=== PATIENT | female | born 1990 ===

== ENCOUNTER 2018-04-15 13:06 | Emergency (ER) | payer OTHER ==
--- NOTE | 2018-04-15 13:29 | UC ---
Throat Pain/Nasal Michele HPI - HPI Summary HPI Summary: 28 yo female presents with sinus pain/pressure/congestion for the last 2-3 weeks. She has been using dayquill and using a netti pot almost daily with relief at first, but no longer helping. Over the last 2-3 days she has felt some pressure and popping in her ears with a frontal headache. She has felt hot/ cold, but says has never had an elevated temperature. Denies fever, sore throat , cough, rash. - History of Current Complaint Chief Complaint: UCGeneralIllness Stated Complaint: SINUS ISSUE Time Seen by Provider: 04/15/18 13:29 Hx Obtained From: Patient Hx Last Menstrual Period: 03/26/2018 Onset/Duration: Gradual Onset Severity: Mild Pain Intensity: 1 Pain Scale Used: 0-10 Numeric - Allergies/Home Medications Allergies/Adverse Reactions: Allergies Allergy/AdvReac Type Severity Reaction Status Date / Time No Known Allergies Allergy Verified 04/15/18 13:22 Home Medications: Home Medications Estradiol/Norethindrone Acet [Estradiol-Noreth 1-0.5 mg Tab] 04/15/18 [History] Phenyleph/Acetaminophn/Doxylam [Eq Daytime-Nitetime Sinus Sfgl] 1 tab 04/15/18 [ History] Propranolol HCl 20 mg PO 04/15/18 [History] buPROPion TAB* [Wellbutrin TAB*] 100 mg PO BID 04/15/18 [History Confirmed 04/15] PMH/Surg Hx/FS Hx/Imm Hx Psychological History: Anxiety, Depression - Surgical History Surgical History: None - Family History Known Family History: Positive: None - Social History Lives: With Family Alcohol Use: None Substance Use Type: None Smoking Status (MU): Never Smoked Tobacco Review of Systems All Other Systems Reviewed And Are Negative: Yes Constitutional: Positive: Negative Skin: Positive: Negative Eyes: Positive: Negative ENT: Positive: Nasal Discharge, Sinus Congestion, Sinus Pain/Tenderness Respiratory: Positive: Negative Cardiovascular: Positive: Negative Gastrointestinal: Positive: Negative Neurovascular: Positive: Negative Neurological: Positive: Negative Psychological: Positive: Negative Physical Exam - Summary Physical Exam Summary: GENERAL: NAD. WDWN. No pain distress. SKIN: No rashes, sores, lesions, or open wounds. HEENT: Head: AT/NC Eyes: EOM intact. Conjunctiva clear without inflammation or discharge. Ears: Hearing grossly normal. TMs intact, no bulging, erythema, or edema. Nose: Nasal mucosa mildly swollen and erythematous with yellow discharge. TTP maxillary < frontal sinus. Positive post nasal drip Throat: Posterior oropharynx without exudates, erythema, or tonsillar enlargement. Uvula midline. NECK: Supple. Nontender. No lymphadenopathy. CHEST: CTAB. No r/r/w. No accessory muscle use. Breathing comfortably and in no distress. CV: RRR. Without m/r/g. Pulses intact. NEURO: Alert. PSYCH: Age appropriate behavior. Triage Information Reviewed: Yes Vital Signs: Initial Vital Signs Temp 97.9 F 04/15/18 13:15 Pulse 81 04/15/18 13:15 Resp 16 04/15/18 13:15 BP 151/80 04/15/18 13:15 Pulse Ox 100 04/15/18 13:15 Vital Signs Reviewed: Yes Throat Pain/Nasal Course/Dx - Course Course Of Treatment: Sinusitis - Differential Dx/Diagnosis Provider Diagnosis: Sinusitis Discharge - Sign-Out/Discharge Documenting (check all that apply): Patient Departure All imaging exams completed and their final reports reviewed: No Studies - Discharge Plan Condition: Stable Disposition: HOME Prescriptions: Amoxicillin PO (*) [Amoxicillin 875 MG (*)] 875 mg PO BID #20 tab Patient Education Materials: Sinusitis (ED) Referrals: No Primary Care Phys,NOPCP [Primary Care Provider] - Additional Instructions: If you develop a fever, shortness of breath, chest pain, new or worsening symptoms - please call your PCP or go to the ED. - Billing Disposition and Condition Condition: STABLE Disposition: Home
== END 2018-04-15 13:39 | disposition home or self-care (01) ==
LOC: UCEAST 13:06
DX: J32.9 Chronic sinusitis, unspecified (principal)
CPT/HCPCS: 99202; G0463